=== PATIENT | male | born 1930 | race Caucasian/White ===

== ENCOUNTER 2017-07-29 10:45 | Outpatient (RCR) | payer MEDICARE, OTHER ==
[~2017-07-29 10:45] MED LIST: ANTIBIOTIC PO; CYCLOBENZAPRINE10 MG PO; DAILY VALUE1 EACH PO; FEXOFENADINE H180 M1 PO; LOVENOX60 MG/0.6 PO; VITAMIN C500 MG PO; VITAMIN D3 1,01 EACH PO; Z MIRTAZAPINE PO; Z PROPRANOLOL HCL PO; Z.0.FUROSEMIDE20 MG PO; Z.0.HYDROCHLOROTHIA2 PO; Z.0.MULTIVITAMINS1 E; Z.0.WARFARIN SODIUM5 PO; [UNRECOGNIZED DRUG - OTHER] PO
== END 2017-08-04 ==
LOC: WCC 10:45
PROVIDERS: ATTEND Family Medicine Adult Medicine
DX: I87.331 Chronic venous hypertension (idiopathic) with ulcer and inflammation of right lower extremity (principal); L89.322 Pressure ulcer of left buttock, stage 2; L97.211 Non-pressure chronic ulcer of right calf limited to breakdown of skin; I70.203 Unspecified atherosclerosis of native arteries of extremities, bilateral legs; R60.0 Localized edema; I87.2 Venous insufficiency (chronic) (peripheral); R41.81 Age-related cognitive decline; I10 Essential (primary) hypertension; I63.40 Cerebral infarction due to embolism of unspecified cerebral artery; I25.10 Atherosclerotic heart disease of native coronary artery without angina pectoris; G47.37 Central sleep apnea in conditions classified elsewhere
CPT/HCPCS: 83036; 84134

== ENCOUNTER 2017-08-19 11:00 | Outpatient (RCR) | payer MEDICARE, OTHER ==
[~2017-08-19 11:00] MED LIST changes: -Z.0.MULTIVITAMINS1 E; +Z.0.MULTIVITAMINS1 E PO
[2017-08-23] MEDS ORDERED: ASPIRIN325 MG PO (09:31)
[2017-08-23] MEDS ORDERED: FUROSEMIDE40 MG PO (09:31)
[2017-08-23] MEDS ORDERED: ARICEPT5 MG PO (09:31)
[2017-08-23] MEDS ORDERED: SPIRONOLACTONE1 EACH PO (09:31)
[2017-08-24] MEDS ORDERED: ACETAMINOPHEN325 M1 PO (17:56)
[2017-08-25] MEDS ORDERED: ASPIRIN81 MG PO (13:03)
[2017-08-25] MEDS ORDERED: PLAVIX75 MG PO (13:03)
== END 2017-09-01 ==
LOC: WCC 11:00
PROVIDERS: ATTEND Family Medicine Adult Medicine
DX: I87.331 Chronic venous hypertension (idiopathic) with ulcer and inflammation of right lower extremity (principal); L89.322 Pressure ulcer of left buttock, stage 2; L97.211 Non-pressure chronic ulcer of right calf limited to breakdown of skin; I70.203 Unspecified atherosclerosis of native arteries of extremities, bilateral legs; I87.2 Venous insufficiency (chronic) (peripheral); R60.0 Localized edema; I10 Essential (primary) hypertension; G47.37 Central sleep apnea in conditions classified elsewhere; I25.10 Atherosclerotic heart disease of native coronary artery without angina pectoris; I63.40 Cerebral infarction due to embolism of unspecified cerebral artery; R41.81 Age-related cognitive decline
CPT/HCPCS: G0463 ×2

== ENCOUNTER 2017-08-24 08:31 | Observation (INO) | payer MEDICARE, OTHER ==
[2017-08-23 09:30] LABS: BASOPHILS # (AUTO) 0.1 (0.0-0.1); BASOPHILS % 0.4 % (0.0-1.0); EOSINOPHILS # (AUTO) 0.3 (0.0-0.4); EOSINOPHILS % 2.3 % (0.0-6.0); HEMATOCRIT 45.2 % (38.2-49.6); HEMOGLOBIN 14.9 g/dL (14.0-18.0); LYMPHOCYTES # (AUTO) 1.9 (1.0-3.2); LYMPHOCYTES % 14.2 % (18.0-39.1); MEAN CORPUSCULAR HEMOGLOBIN 32.6 pg (28-32); MEAN CORPUSCULAR VOLUME 98.9 fL (81-99); MONOCYTES # (AUTO) 1.2 (0.2-0.8); MONOCYTES % 8.9 % (4.4-11.3); NEUTROPHILS # (AUTO) 9.7 (2.1-6.9); NEUTROPHILS % 73.8 % (38.7-80.0); PLATELET COUNT 248 x10e3/uL (140-360); RED BLOOD COUNT 4.57 x10e6/uL (4.3-5.7); RED CELL DISTRIBUTION WIDTH 13.7 % (11.7-14.4)
[2017-08-23 10:06] LABS: ALANINE AMINOTRANSFERASE 43 IU/L (0-55); ALBUMIN 4.1 g/dL (3.5-5.0); ALKALINE PHOSPHATASE 85 IU/L (40-150); ANION GAP 14.4 mmol/L (8-16); BLOOD UREA NITROGEN 12 mg/dL (7-26); BUN/CREATININE RATIO 14 (6-25); CALCIUM 9.4 mg/dL (8.4-10.2); CARBON DIOXIDE 28 mmol/L (22-29); CHLORIDE 92 mmol/L (98-107); CHOL/HDL RATIO 4.4 (3.9-4.7); CHOLESTEROL 144 MD/DL (0-199); CREATININE, SERUM 0.83 mg/dL (0.72-1.25); EST GLOMERULAR FILTRATION RATE > 60 ML/MIN (60-); GLUCOSE 97 mg/dL (74-118); HDL CHOLESTEROL 33 MG/DL (40-60); LDL CHOLESTEROL 70 MG/DL (60-130); POTASSIUM 3.4 mmol/L (3.5-5.1); SODIUM 131 mmol/L (136-145); TRIGLYCERIDES 203 MG/DL (0-149)
[~2017-08-24] VITALS: Ht 177.8 cm; Wt 83.9 kg
[2017-08-24] VITALS (7 sets, daily range): BP systolic 122–140; BP diastolic 60–75
[~2017-08-24 08:31] MED LIST changes: +ARICEPT5 MG PO; +ASPIRIN325 MG PO; +FUROSEMIDE40 MG PO; +SPIRONOLACTONE1 EACH PO
--- OUTSIDE RECORDS SUMMARY | 2017-08-24 08:34 | XMS REPORT | Continuity of Care Document ---
Author Author [facility] Organization [facility] Address [address] [place] [address] Phone Unavailable Care Team Providers Care Finished Stock Inspector Name Role Phone DIANA JACK DO PCP Insurance Providers Guarantor Franco Hayes Address [address] [phone] Email NONE Payer Medicare A & B Policy Number [id number] Subscriber's Name Franco Hayes Relationship 18 Self / Same As Patient Effective Date 95 Payer Miscellaneous Ppo Policy Number [id number] Subscriber's Name Franco Hayes Relationship 18 Self / Same As Patient Group Number [id number] Group Name [id number] Effective Date 93 Advance Directives Directive Response Recorded Date/Time Does the patient have an advance directive? Yes 12/04/10 1:42pm If yes, is advance [facility]? No 12/04/10 1:42pm If not on file with [facility] will patient provide a copy? Yes 12/04/10 1:42pm Do you have a Directive to Physician? No 07/08/17 1:54pm Do you have a Medical Power of Finished Stock Inspector? No 07/08/17 1:54pm Do you have an out of hospital Do Not Resuscitate Order? No 07/08/17 1:54pm Do you have any special needs we should be aware of? No 07/08/17 1:54pm Do you have a support person here with you today? No 07/08/17 1:54pm Did patient receive Notice of Privacy Practices? Yes 07/08/17 1:55pm Did patient receive patient rights and responsibilities? Yes 07/08/17 1:55pm Problems No problem information available. Medications Current Home Medications Medication Dose Units Route Directions Days Qty Instructions Start Date Ascorbic Acid (Vitamin C) 500 Mg Capsule.er 500 Mg Oral Daily Ca Cmb No.1/Vit D3/B-6/Fa/B12 (Vitamin D3 1,000 Unit Tablet) 1 Each Tablet Oral Daily Cyclobenzaprine Hcl 10 Mg Tablet 10 Mg Oral Three Times A Day as needed for Pain Fexofenadine Hcl 180 Mg Tablet 180 Mg Oral Daily Hydrochlorothiazide 25 Mg Tablet 25 Mg Oral Daily Mirtazapine 30 Mg Tablet 30 Mg Oral Daily Multivitamin (Multivitamins) 1 Each Tab.chew Daily Propranolol Hcl 40 Mg Tablet 40 Mg Oral Daily Warfarin Sodium 5 Mg Tablet 5 Mg Oral Daily Past Home Medications Medication Directions Ordered Status Antibiotic Nasal , 1 Dose Oral Twice A Day Discontinued Enoxaparin Sodium (Lovenox) 60 Mg/0.6 Ml Inj, 60 Mg Oral Discontinued Furosemide 20 Mg Tablet, 20 Mg Oral Daily Discontinued Metolazone 2.5 Mg Tablet, 2.5 Mg Oral Twice A Day Discontinued Multivitamin (Daily Value) 1 Each Tablet, Oral Daily Discontinued Social History No social history information available. Hospital Discharge Instructions No hospital discharge instruction information available. Plan of Care Prescriptions See Medication Section Functional Status No functional status information available. Allergies, Adverse Reactions, Alerts No known allergies. Immunizations No immunization information available. Vital Signs No vital sign information available. Results Laboratory Results Test Name Result Units Flags Reference Collection Date/Time Result Date/ Time Comments White Blood Count 10.1 x10e3/uL 4.5-10.6 11/16/2016 2:37am 11/16/2016 3 :15am Red Blood Count 4.79 x10e6/uL 4.3-5.7 11/16/2016 2:37am 11/16/2016 3: 15am Hemoglobin 15.6 g/dL 12.3-16.8 11/16/2016 2:37am 11/16/2016 3:15am Hematocrit 45.4 % 38.2-49.6 11/16/2016 2:11/16/2016 3:15am Mean Corpuscular Volume 94.8 fL 81-99 11/16/2016 2:11/16/2016 3: 15am Mean Corpuscular Hemoglobin 32.6 pg H 28-32 11/16/2016 2:372016 3:15am Mean Corpuscular Hemoglobin Concent 34.4 g/dL 31-35 11/16/2016 2:11/16/2016 3:15am Red Cell Distribution Width 14.4 % 11.7-14.4 11/16/2016 2:2016 3:15am Platelet Count 270 x10e3/uL 140-360 11/16/2016 2:11/16/2016 3: 15am Neutrophils (%) (Auto) 71.0 % 38.7-80.0 11/16/2016 2:11/16/2016 3: 15am Lymphocytes (%) (Auto) 15.4 % L 18.0-39.1 11/16/2016 2:11/16/2016 3 :15am Monocytes (%) (Auto) 11.1 % 4.4-11.3 11/16/2016 2:11/16/2016 3: 15am Eosinophils (%) (Auto) 1.6 % 0.0-6.0 11/16/2016 2:11/16/2016 3: 15am Basophils (%) (Auto) 0.5 % 0.0-1.0 11/16/2016 2:11/16/2016 3:15am IM GRANULOCYTES % 0.4 % 0.0-1.0 11/16/2016 2:11/16/2016 3:15am Neutrophils # (Auto) 7.2 H 2.1-6.9 11/16/2016 2:11/16/2016 3: 15am Lymphocytes # (Auto) 1.6 1.0-3.2 11/16/2016 2:11/16/2016 3:15am Monocytes # (Auto) 1.1 H 0.2-0.8 11/16/2016 2:11/16/2016 3:15am Eosinophils # (Auto) 0.2 0.0-0.4 11/16/2016 2:37am 11/16/2016 3:15am Basophils # (Auto) 0.1 0.0-0.1 11/16/2016 2:37am 11/16/2016 3:15am Absolute Immature Granulocyte (auto 0.04 x10e3/uL 0-0.1 11/16/2016 2: 37am 11/16/2016 3:15am Prothrombin Time 14.6 seconds H 11.9-14.5 11/16/2016 2:37am 11/16/2016 3 :16am Prothromb Time International Ratio 1.08 11/16/2016 2:37am 2016 3:16am Oral Anticoagulant Therapy INR Values: 1. Low Intensity Therapy 1.5 - 2.0 2. Moderate Intensity Therapy 2.0 - 3.0 3. High Intensity Therapy(1) 2.5 - 3.5 4. High Intensity Therapy(2) 3.0 - 4.0 5. Panic Value INR > 5.0 Activated Partial Thromboplast Time 28.0 seconds 23.8-35.5 11/16/2016 2: 37am 11/16/2016 3:17am Urine Color YELLOW YELLOW 11/16/2016 3:50am 11/16/2016 4:00am Urine Clarity CLEAR CLEAR 11/16/2016 3:50am 11/16/2016 4:00am Urine Specific [place] 1.015 1.010-1.025 11/16/2016 3:50am 2016 4:00am Urine pH 7 5 - 7 11/16/2016 3:50am 11/16/2016 4:00am Urine Leukocyte Esterase NEGATIVE NEGATIVE 11/16/2016 3:50am 2016 4:00am Urine Nitrite NEGATIVE NEGATIVE 11/16/2016 3:50am 11/16/2016 4:00am Urine Protein NEGATIVE NEGATIVE 11/16/2016 3:50am 11/16/2016 4:00am Urine Glucose (UA) NEGATIVE NEGATIVE 11/16/2016 3:50am 11/16/2016 4: 00am Urine Ketones NEGATIVE NEGATIVE 11/16/2016 3:50am 11/16/2016 4:00am Urine Urobilinogen 0.2 mg/dL 0.2 - 1 11/16/2016 3:50am 11/16/2016 4: 00am Urine Bilirubin NEGATIVE NEGATIVE 11/16/2016 3:50am 11/16/2016 4: 00am Urine Blood NEGATIVE NEGATIVE 11/16/2016 3:50am 11/16/2016 4:00am Urine WBC 0-5 /HPF 0-5 11/16/2016 3:50am 11/16/2016 4:20am Urine RBC 0-5 /HPF 0-5 11/16/2016 3:50am 11/16/2016 4:20am Urine Bacteria RARE /HPF NONE 11/16/2016 3:50am 11/16/2016 4:20am Urine Epithelial Cells RARE /LPF NONE 11/16/2016 3:50am 11/16/2016 4: 20am Sodium Level 138 mmol/L 136-145 11/16/2016 2:37am 11/16/2016 3:31am Potassium Level 2.6 mmol/L *L 3.5-5.1 11/16/2016 2:37am 11/16/2016 3: 31am Results called to YAKELIN CONROY RN at 0330 on 11/16/16 by Veronica Ro. RB OK. Chloride Level 86 mmol/L L 98-107 11/16/2016 2:37am 11/16/2016 3:31am Carbon Dioxide Level 36 mmol/L H 22-29 11/16/2016 2:37am 11/16/2016 3: 31am Anion Gap 18.6 mmol/L H 8-16 11/16/2016 2:37am 11/16/2016 3:31am Blood Urea Nitrogen 20 mg/dL 7-26 11/16/2016 2:37am 11/16/2016 3:31am Creatinine 1.14 mg/dL 0.72-1.25 11/16/2016 2:37am 11/16/2016 3:31am BUN/Creatinine Ratio 18 6-25 11/16/2016 2:37am 11/16/2016 3:31am Estimat Glomerular Filtration Rate > 60 ML/MIN 60- 11/16/2016 2:37am 3:31am Ranges were taken from the National Kidney Disease Education Program and the National Kidney Foundation literature. Reference ranges: 60 or greater: Normal 16-59 (for 3 consecutive months): Chronic kidney disease 15 or less: Kidney failure Glucose Level 116 mg/dL 74-118 11/16/2016 2:37am 11/16/2016 3:31am Calcium Level 10.1 mg/dL 8.4-10.2 11/16/2016 2:37am 11/16/2016 3:31am Magnesium Level 2.2 MG/DL H 1.3-2.1 11/16/2016 3:30am 11/16/2016 3:58am Hemoglobin A1c Percent 5.7 % 4.0-7.0 07/13/2017 11:30am 07/13/2017 1: 08pm Prealbumin 23 mg/dL 9-32 07/13/2017 11:30am 07/15/2017 6:00am Performed at: - [facility] [id number] Cut Off Saw Operator Metal: Philip Kang MD, Phone: [phone] Procedures Procedure Status Date Provider(s) Computed tomography of brain without radiopaque contrast Active 11/16/16 ZAHEER MATOS MD X-ray of chest, two views Active 11/16/16 ZAHEER MATOS MD Encounters Encounter Location Arrival/Admit Date Discharge/Depart Date Attending Provider Discharged [facility] 07/29/17 10:45am 11:59pm ANDRADE MCKEON MD Departed Emergency Room [facility] Patients [facility] 11/16/16 2:08am 10:23am ZAHEER MATOS MD
[2017-08-24] MEDS ORDERED: SODIUM CHLORIDE 0.9% 1000ML 1,000 ML PRN (09:41)
[2017-08-24 10:15] LABS: INR 2.69; PROTHROMBIN TIME 26.9 seconds (11.9-14.5)
--- NOTE | 2017-08-24 13:01 | Operative Report ---
DATE OF PROCEDURE: August 24, 2017 INDICATIONS: Claudication, ulceration of lower extremity with severe peripheral arterial disease. PROCEDURES PERFORMED 1. Abdominal aorta catheter placement and abdominal aortogram. 2. Bilateral lower extremity angiograms. 3. Selective placement of catheter from right femoral artery to left superficial femoral artery. 4. Additional 3rd-order catheter placement from the right femoral artery to the left dorsalis pedis artery. 5. Atherectomy and drug balloon angioplasty of the left anterior tibial artery. 6. Drug-eluting stent placement to the left anterior tibial artery. 7. Secondary thrombectomy of the left anterior tibial artery. 8. Deployment of right groin Perclose. COMPLICATIONS: None. RECOMMENDATIONS 1. Aggressive medical therapy including clopidogrel, aspirin, and warfarin for 1 month followed by warfarin and aspirin lifelong. 2. Staged intervention on the right femoral artery. TECHNIQUE: Access obtained to the right femoral artery. A 6-Kyrgyz sheath was placed. Abdominal aortogram demonstrated no disease in the abdominal aorta and iliac arteries bilaterally. The catheter was advanced from the right femoral artery to the left superficial femoral artery due to nonvisualization of the left femoral artery, confirming 50% stenosis of the distal femoral artery. Infrapopliteal vessels were not well visualized. The catheter was then advanced from the right femoral artery to the left anterior tibial artery (additional 3rd-order catheter placement) and diffuse 30-50% stenosis in the left posterior tibial and peroneal arteries; however, the anterior tibial artery was completely occluded, reconstitution at the level of the dorsalis pedis artery. A decision was made to intervene on the anterior tibial artery in the left leg. The patient received 6000 units of intra-arterial heparin and oral Effient for anticoagulation. The sheath was exchanged to a 6-Kyrgyz, 45 cm sheath and advanced from the right femoral artery to the left superficial femoral artery. The lesion was crossed using a Glidewire and the wire was exchanged to a ViperWire. Orbital atherectomy using a 1.25 mm micro crown was performed. Large amounts of visible thrombus, for which manual aspiration secondary thrombectomy of the left anterior tibial artery was needed. A small balloon angioplasty with a 2.5 and then a 4.0 drug-coated balloon was performed. A small AV fistula was noted requiring drug-eluting stent placement, 3 x 38 mm Global Grind Synergy stent was deployed at 12 atmospheres. The AV fistula was completely sealed, 3-vessel runoff to the left foot. Right leg angiogram demonstrated focal 90% stenosis of the distal right superficial femoral artery. Infrapopliteal vessels were not well visualized. Right groin repaired using Perclose. Patient observed in the hospital overnight and was discharged home the following day. Job#: [id number] SAK
[2017-08-24] MEDS ORDERED: MORPHINE SULFATE 2 MG/ML SYR IV PRN (16:45)
[2017-08-24] MEDS ORDERED: ACETAMINOPHEN325 M1 PO (17:56)
[2017-08-24] MEDS ORDERED: ACETAMINOPHEN 325 MG TAB PO PRN (18:00)
[2017-08-24] MEDS ORDERED: MULTIVITAMINS/MINERALS TAB PO SCH (21:00)
[2017-08-24] MEDS ORDERED: PROPRANOLOL HCL 40 MG TAB PO SCH (21:00)
[2017-08-24] MEDS ORDERED: MIRTAZAPINE 15 MG TAB PO SCH (21:00)
[2017-08-24] MEDS ORDERED: [UNRECOGNIZED DRUG - REMARK] PO SCH (21:00)
[2017-08-24] MEDS ORDERED: WARFARIN SOD 5 MG TAB PO SCH (21:00)
[2017-08-24] MEDS ORDERED: HYDROCHLOROTHIAZIDE 25 MG TAB PO SCH (21:00)
[2017-08-24] MEDS ORDERED: DONEPEZIL HCL 5 MG TAB PO SCH (21:00)
[2017-08-24] MEDS ORDERED: SPIRONOLACTONE 25 MG TAB PO SCH (21:00)
[2017-08-25 00:30] VITALS: BP 128/68
[2017-08-25 06:00] VITALS: BP 134/76
[2017-08-25 06:02] LABS: BASOPHILS % 0.3 % (0.0-1.0); EOSINOPHILS # (AUTO) 0.2 (0.0-0.4); EOSINOPHILS % 1.7 % (0.0-6.0); HEMATOCRIT 41.2 % (38.2-49.6); HEMOGLOBIN 13.6 g/dL (14.0-18.0); LYMPHOCYTES # (AUTO) 1.1 (1.0-3.2); MEAN CORPUSCULAR HEMOGLOBIN 32.3 pg (28-32); MEAN CORPUSCULAR VOLUME 97.9 fL (81-99); MONOCYTES % 9.7 % (4.4-11.3); NEUTROPHILS # (AUTO) 7.6 (2.1-6.9); NEUTROPHILS % 76.8 % (38.7-80.0); PLATELET COUNT 195 x10e3/uL (140-360); RED BLOOD COUNT 4.21 x10e6/uL (4.3-5.7); RED CELL DISTRIBUTION WIDTH 13.7 % (11.7-14.4)
[2017-08-25 06:14] LABS: INR 2.01; PROTHROMBIN TIME 21.4 seconds (11.9-14.5)
[2017-08-25 06:26] LABS: ANION GAP 15.7 mmol/L (8-16); BLOOD UREA NITROGEN 12 mg/dL (7-26); BUN/CREATININE RATIO 15 (6-25); CALCIUM 9.3 mg/dL (8.4-10.2); CARBON DIOXIDE 28 mmol/L (22-29); CHLORIDE 98 mmol/L (98-107); CREATININE, SERUM 0.81 mg/dL (0.72-1.25); EST GLOMERULAR FILTRATION RATE > 60 ML/MIN (60-); GLUCOSE 110 mg/dL (74-118); POTASSIUM 3.7 mmol/L (3.5-5.1); SODIUM 138 mmol/L (136-145)
[2017-08-25] MEDS ORDERED: ASPIRIN 325 MG TAB PO SCH (09:00)
[2017-08-25] MEDS ORDERED: FUROSEMIDE 40 MG TAB PO SCH (09:00)
[2017-08-25] MEDS ORDERED: LORATADINE 10 MG TAB PO PRN (09:00)
[2017-08-25 09:21] VITALS: BP 110/63
[2017-08-25] MEDS ORDERED: CLOPIDOGREL BISULFATE 75 MG TAB PO SCH (13:00)
[2017-08-25] MEDS ORDERED: PLAVIX75 MG PO (13:03)
[2017-08-25] MEDS ORDERED: ASPIRIN81 MG PO (13:03)
== END 2017-08-25 14:06 | disposition home or self-care (01) ==
LOC: CATH LAB 08:31 → IMCU 16:22
PROVIDERS: ADMIT Internal Medicine Interventional Cardiology; ATTEND Internal Medicine Interventional Cardiology
DX: I70.213 Atherosclerosis of native arteries of extremities with intermittent claudication, bilateral legs (principal); L97.819 Non-pressure chronic ulcer of other part of right lower leg with unspecified severity; I70.92 Chronic total occlusion of artery of the extremities; I77.0 Arteriovenous fistula, acquired
CPT/HCPCS: 36415 ×3; 37224; 37231; 37232; 75716; 77002; 80048; 80053; 80061; 85025 ×2; 85610 ×2; C1724; C1725 ×2; C1769; C1874; C1887; C2623; G0378 ×2; J7030; 36140; 92920; 92924

== ENCOUNTER → 2017-09-21 | Day surgery (SDC) | payer MEDICARE, OTHER ==
[2017-09-20 11:58] LABS: BASOPHILS % 0.4 % (0.0-1.0); EOSINOPHILS # (AUTO) 0.1 (0.0-0.4); EOSINOPHILS % 0.9 % (0.0-6.0); HEMATOCRIT 38.7 % (38.2-49.6); HEMOGLOBIN 12.9 g/dL (14.0-18.0); LYMPHOCYTES # (AUTO) 1.3 (1.0-3.2); LYMPHOCYTES % 12.7 % (18.0-39.1); MEAN CORPUSCULAR HEMOGLOBIN 31.8 pg (28-32); MEAN CORPUSCULAR HGB CONC 33.3 g/dL (31-35); MEAN CORPUSCULAR VOLUME 95.3 fL (81-99); MONOCYTES # (AUTO) 1.2 (0.2-0.8); NEUTROPHILS # (AUTO) 7.5 (2.1-6.9); NEUTROPHILS % 73.6 % (38.7-80.0); PLATELET COUNT 288 x10e3/uL (140-360); RED BLOOD COUNT 4.06 x10e6/uL (4.3-5.7); RED CELL DISTRIBUTION WIDTH 13.6 % (11.7-14.4)
[2017-09-20 12:07] LABS: INR 1.49; PROTHROMBIN TIME 16.9 seconds (11.9-14.5)
[2017-09-20 12:16] LABS: ALANINE AMINOTRANSFERASE 34 IU/L (0-55); ALBUMIN 3.9 g/dL (3.5-5.0); ALBUMIN/GLOBULIN RATIO 0.9 (0.8-2.0); ALKALINE PHOSPHATASE 81 IU/L (40-150); BLOOD UREA NITROGEN 24 mg/dL (7-26); BUN/CREATININE RATIO 24 (6-25); CALCIUM 9.6 mg/dL (8.4-10.2); CARBON DIOXIDE 34 mmol/L (22-29); CHLORIDE 90 mmol/L (98-107); CREATININE, SERUM 0.99 mg/dL (0.72-1.25); EST GLOMERULAR FILTRATION RATE > 60 ML/MIN (60-); GLUCOSE 113 mg/dL (74-118); SODIUM 136 mmol/L (136-145)
[~2017-09-21] VITALS: Ht 175.3 cm; Wt 82.6 kg
[~2017-09-21] MED LIST changes: +ACETAMINOPHEN325 M1 PO; +ALLEGRA-D 24 H1 EACH PO; +ASPIRIN81 MG PO; +FENTANYL CITRATE/PF 100MCG/2 ML INJ ONE; +HEPARIN SOD (PORCINE) 1000 UNIT/ML 30ML ONE; +HEPARIN SOD/SOD CHLORIDE 2,000 ML ONE; +IOPAMIDOL 300MG/ML 100 ML INFUS..BTL IV ONE; +LIDOCAINE HCL 2% LOCAL 20 ML VIAL ONE; +MIDAZOLAM HCL 2 MG/2 ML VIAL ONE; +MUCINEX DM ER1 EACH PO; +NITROGLYCERIN/D5W 200 MCG/ML 0 ML ONE; +NITROGLYCERIN/D5W 200 MCG/ML 250 ML ONE; +PLAVIX75 MG PO; +SODIUM CHLORIDE 0.9% 1000ML 1,000 ML ONE; +VERAPAMIL HCL 2.5 MG/ML 2 ML VIAL ONE; +VITAMIN C1000 MG PO; +ZYRTEC10 MG PO
--- OUTSIDE RECORDS SUMMARY | 2017-09-21 11:02 | XMS REPORT | Continuity of Care Document ---
Author Author [facility] Organization [facility] Address [address] [place] [address] Phone Unavailable Care Team Providers Care Sales Agent Name Role Phone JACK ORTIZ DO PCP Insurance Providers Guarantor FreddyFranco Caroline Address [address] [phone] Email NONE Payer Medicare A & B Policy Number [id number] Subscriber's Name Franco Hayes Relationship 18 Self / Same As Patient Group Number [id number] Group Name RETIRED Effective Date 95 Payer Miscellaneous Ppo Policy Number [id number] Subscriber's Name Franco Hayes Relationship 18 Self / Same As Patient Group Number [id number] Group Name RETIRED Effective Date 93 Advance Directives Directive Response Recorded Date/Time Does the patient have an advance directive? No 08/24/17 4:45pm If yes, is advance directive on file with [facility]? No 08/24/17 4:45pm If not on file with [facility] will patient provide a copy? No 08/24/17 4:45pm Do you have a Directive to Physician? No 08/23/17 8:09am Do you have a Medical Power of Viticulture Teacher? Yes 08/23/17 8:09am Do you have an out of hospital Do Not Resuscitate Order? No 08/23/17 8:09am Do you have any special needs we should be aware of? No 08/23/17 8:09am Do you have a support person here with you today? Yes 08/23/17 8:09am Did patient receive Notice of Privacy Practices? Yes 08/23/17 8:09am Did patient receive patient rights and responsibilities? Yes 08/23/17 8:09am Problems No problem information available. Medications Current Home Medications Medication Dose Units Route Directions Days Qty Instructions Start Date Acetaminophen 325 Mg Tablet 325 Mg Oral Every 6 Hours as needed for Pain 5 Days Aspirin 81 Mg Tab.chew 81 Mg Oral Daily 30 Days 30 08/25/17 Ca Cmb No.1/Vit D3/B-6/Fa/B12 (Vitamin D3 1,000 Unit Tablet) 1 Each Tablet 1 Tab Oral Bedtime Clopidogrel Bisulfate (Plavix) 75 Mg Tablet 75 Mg Oral Daily 30 Days 08/25/17 Donepezil Hcl (Aricept) 5 Mg Tablet 10 Mg Oral Bedtime 60 Tab Fexofenadine Hcl 180 Mg Tablet 180 Mg Oral Daily as needed for Allergy Furosemide 40 Mg Tablet 40 Mg Oral Daily 30 Tab Mirtazapine 30 Mg Tablet 30 Mg Oral Bedtime Multivitamin (Multivitamins) 1 Each Tab.chew 1 Tab Oral Bedtime Propranolol Hcl 40 Mg Tablet 40 Mg Oral Bedtime Spironolact/Hydrochlorothiazid (Spironolactone-Hctz 25-25 Tab) 1 Each Tablet 1 Tab Oral Bedtime Warfarin Sodium 5 Mg Tablet 5 Mg Oral Bedtime Past Home Medications Medication Directions Ordered Status Antibiotic Nasal , 1 Dose Oral Twice A Day Discontinued Ascorbic Acid (Vitamin C) 500 Mg Capsule.er, 1000 Mg Oral Daily Discontinued Aspirin 325 Mg Tablet, 150 Mg Oral Daily Discontinued Cyclobenzaprine Hcl 10 Mg Tablet, 10 Mg Oral Three Times A Day as needed for Pain Discontinued Enoxaparin Sodium (Lovenox) 60 Mg/0.6 Ml Inj, 60 Mg Oral Discontinued Furosemide 20 Mg Tablet, 20 Mg Oral Daily Discontinued Hydrochlorothiazide 25 Mg Tablet, 25 Mg Oral Daily Discontinued Metolazone 2.5 Mg Tablet, 2.5 Mg Oral Twice A Day Discontinued Multivitamin (Daily Value) 1 Each Tablet, Oral Daily Discontinued Social History Social History Problem Response Recorded Date/Time Onset Date Status Hx Psychiatric Problems No 08/24/2017 4:45pm Not Applicable Not Applicable Hx Eating Disorder No 08/24/2017 4:45pm Not Applicable Not Applicable Hx Substance Use Disorder No 08/24/2017 4:45pm Not Applicable Not Applicable Hx Depression No 08/24/2017 4:45pm Not Applicable Not Applicable Hx Alcohol Use No 08/24/2017 4:45pm Not Applicable Not Applicable Hx Substance Use Treatment No 08/24/2017 4:45pm Not Applicable Not Applicable Hx Physical Abuse No 08/24/2017 4:45pm Not Applicable Not Applicable Smoking Status Start Date Stop Date Never Smoker Hospital Discharge Instructions No hospital discharge instruction information available. Plan of Care Discharge Date 08/25/17 2:06pm Disposition HOME, SELF-CARE Instructions/Education Provided Peripheral Vascular Disease Prescriptions See Medication Section Referrals RUSTAM FUNG MD (Cardiology) Entered Date: 08/25/2017 1:03pm Address: [address] [place] [address]. [address] [id number] Functional Status Query Response Date Recorded Assistive Devices None August 24, 2017 4:52pm Ambulation Ability Independent August 24, 2017 4:52pm Toileting Ability Independent August 24, 2017 4:52pm Allergies, Adverse Reactions, Alerts No known allergies. Immunizations No immunization information available. Vital Signs Acute Vital Signs Vital Response Date/Time Temperature (Fahrenheit) 98.8 degrees F (97.6 - 99.5) 08/25/2017 9:21am Pulse Pulse Rate (adult) 60 bpm (60 - 90) 08/25/2017 9:21am Respiratory Rate 20 bpm (12 - 24) 08/25/2017 9:21am Blood Pressure 110/63 mm Hg 08/25/2017 9:21am Height 5 ft 10 in 08/23/2017 9:32am Weight 185 lb 08/23/2017 9:32am Body Mass Index 26.5 kg/m^2 08/24/2017 4:45pm Results Laboratory Results Test Name Result Units Flags Reference Collection Date/Time Result Date/ Time Comments Activated Partial Thromboplast Time 28.0 seconds 23.8-35.5 11/16/2016 2: 37am 11/16/2016 3:17am Urine Color YELLOW YELLOW 11/16/2016 3:50am 11/16/2016 4:00am Urine Clarity CLEAR CLEAR 11/16/2016 3:50am 11/16/2016 4:00am Urine Specific [place] 1.015 1.010-1.025 11/16/2016 3:50am 2016 4:00am Urine [...] /LPF NONE 11/16/2016 3:50am 11/16/2016 4: 20am Magnesium Level 2.2 MG/DL H 1.3-2.1 11/16/2016 3:30am 11/16/2016 3:58am Hemoglobin A1c Percent 5.7 % 4.0-7.0 07/13/2017 11:30am 07/13/2017 1: 08pm Prealbumin 23 mg/dL 9-32 07/13/2017 11:30am 07/15/2017 6:00am Performed at: - [facility] [address] [id number] Verification Manager: Philip Kang MD, Phone: [phone] White Blood Count 9.96 x10e3/uL 4.8-10.8 08/25/2017 5:48am 08/25/2017 6 :07am Red Blood Count 4.21 x10e6/uL L 4.3-5.7 08/25/2017 5:48am 08/25/2017 6: 07am Hemoglobin 13.6 g/dL L 14.0-18.0 08/25/2017 5:48am 08/25/2017 6:07am Hematocrit 41.2 % 38.2-49.6 08/25/2017 5:48am 08/25/2017 6:07am Mean Corpuscular Volume 97.9 fL 81-99 08/25/2017 5:48am 08/25/2017 6: 07am Mean Corpuscular Hemoglobin 32.3 pg H 28-32 08/25/2017 5:48am 2017 6:07am Mean Corpuscular Hemoglobin Concent 33.0 g/dL 31-35 08/25/2017 5:48am 08/25/2017 6:07am Red Cell Distribution Width 13.7 % 11.7-14.4 08/25/2017 5:48am 2017 6:07am Platelet Count 195 x10e3/uL 140-360 08/25/2017 5:48am 08/25/2017 6: 07am Neutrophils (%) (Auto) 76.8 % 38.7-80.0 08/25/2017 5:48am 08/25/2017 6: 07am Lymphocytes (%) (Auto) 11.0 % L 18.0-39.1 08/25/2017 5:48am 08/25/2017 6 :07am Monocytes (%) (Auto) 9.7 % 4.4-11.3 08/25/2017 5:48am 08/25/2017 6: 07am Eosinophils (%) (Auto) 1.7 % 0.0-6.0 08/25/2017 5:48am 08/25/2017 6: 07am Basophils (%) (Auto) 0.3 % 0.0-1.0 08/25/2017 5:48am 08/25/2017 6:07am IM GRANULOCYTES % 0.5 % 0.0-1.0 08/25/2017 5:48am 08/25/2017 6:07am Neutrophils # (Auto) 7.6 H 2.1-6.9 08/25/2017 5:48am 08/25/2017 6: 07am Lymphocytes # (Auto) 1.1 1.0-3.2 08/25/2017 5:48am 08/25/2017 6:07am Monocytes # (Auto) 1.0 H 0.2-0.8 08/25/2017 5:48am 08/25/2017 6:07am Eosinophils # (Auto) 0.2 0.0-0.4 08/25/2017 5:48am 08/25/2017 6:07am Basophils # (Auto) 0.0 0.0-0.1 08/25/2017 5:48am 08/25/2017 6:07am Absolute Immature Granulocyte (auto 0.05 x10e3/uL 0-0.1 08/25/2017 5: 48am 08/25/2017 6:07am Prothrombin Time 21.4 seconds H 11.9-14.5 08/25/2017 5:48am 08/25/2017 6 :17am Prothromb Time International Ratio 2.01 08/25/2017 5:48am 2017 6:17am Oral Anticoagulant Therapy INR Values: 1. Low Intensity Therapy 1.5 - 2.0 2. Moderate Intensity Therapy 2.0 - 3.0 3. High Intensity Therapy(1) 2.5 - 3.5 4. High Intensity Therapy(2) 3.0 - 4.0 5. Panic Value INR > 5.0 Sodium Level 138 mmol/L # 136-145 08/25/2017 5:48am 08/25/2017 6:27am Potassium Level 3.7 mmol/L 3.5-5.1 08/25/2017 5:48am 08/25/2017 6:27am Chloride Level 98 mmol/L 98-107 08/25/2017 5:48am 08/25/2017 6:27am Carbon Dioxide Level 28 mmol/L 22-29 08/25/2017 5:48am 08/25/2017 6: 27am Anion Gap 15.7 mmol/L 8-16 08/25/2017 5:48am 08/25/2017 6:27am Blood Urea Nitrogen 12 mg/dL 7-26 08/25/2017 5:48am 08/25/2017 6:27am Creatinine 0.81 mg/dL 0.72-1.25 08/25/2017 5:48am 08/25/2017 6:27am BUN/Creatinine Ratio 15 6-25 08/25/2017 5:48am 08/25/2017 6:27am Estimat Glomerular Filtration Rate > 60 ML/MIN 60- 08/25/2017 5:48am 6:27am Ranges were taken from the National Kidney Disease Education Program and the National Kidney Foundation literature. Reference ranges: 60 or greater: Normal 16-59 (for 3 consecutive months): Chronic kidney disease 15 or less: Kidney failure Glucose Level 110 mg/dL 74-118 08/25/2017 5:48am 08/25/2017 6:27am Calcium Level 9.3 mg/dL 8.4-10.2 08/25/2017 5:48am 08/25/2017 6:27am Total Bilirubin 1.0 mg/dL 0.2-1.2 08/23/2017 9:2408/23/2017 10:12am Aspartate Amino Transf (AST/SGOT) 39 IU/L H 5-34 08/23/2017 9:2408/23 10:12am Alanine Aminotransferase (ALT/SGPT) 43 IU/L 0-55 08/23/2017 9:24 10:12am Total Protein 8.4 g/dL H 6.5-8.1 08/23/2017 9:2408/23/2017 10:12am Albumin 4.1 g/dL 3.5-5.0 08/23/2017 9:2408/23/2017 10:12am Globulin 4.3 g/dL H 2.3-3.5 08/23/2017 9:2408/23/2017 10:12am Albumin/Globulin Ratio 1.0 0.8-2.0 08/23/2017 9:2408/23/2017 10: 12am Alkaline Phosphatase 85 IU/L 40-150 08/23/2017 9:2408/23/2017 10: 12am Triglycerides Level 203 MG/DL H 0-149 08/23/2017 9:24am 08/23/2017 10: 12am Cholesterol Level 144 MD/DL 0-199 08/23/2017 9:24am 08/23/2017 10:12am Less than 200 mg/dL Low Risk 201 - 239 mg/dL Borderline Risk 240 mg/dl and greater High Risk LDL Cholesterol 70 MG/DL 60-130 08/23/2017 9:24am 08/23/2017 10:12am HDL Cholesterol 33 MG/DL L 40-60 08/23/2017 9:24am 08/23/2017 10:12am Cholesterol/HDL Ratio 4.4 3.9-4.7 08/23/2017 9:24am 08/23/2017 10: 12am Procedures Procedure Status Date Provider(s) Computed tomography of brain without radiopaque contrast Active 11/16/16 ZAHEER MATOS MD X-ray of chest, two views Active 11/16/16 ZAHEER MATOS MD Encounters Encounter Location Arrival/Admit Date Discharge/Depart Date Attending Provider [facility]charged [facility] 08/24/17 4:22pm 2:06pm RUSTAM FUNG MD Discharged [facility] 08/19/17 11:00am 11:59pm ANDRADE MCKEON MD Discharged [facility]ring [facility] 07/13/17 3:07pm 08/04/17 11:59pm ANDRADE MCKEON MD Departed Emergency [facility] 11/16/16 2:08am 10:23am ZAHEER MATOS MD
[2017-09-21 11:43] VITALS: BP 123/63
[2017-09-21 11:50] VITALS: BP 123/63
[2017-09-21 15:35] VITALS: BP 128/97
--- NOTE | 2017-09-21 16:04 | Operative Report ---
DATE OF PROCEDURE: September 21, 2017 PROCEDURES PERFORMED 1. Third-order catheter placement from left femoral artery to the right superficial femoral artery with unilateral extremity angiogram. 2. Additional 3rd-order catheter placement from the left femoral artery to the right anterior tibial artery. 3. Atherectomy and angioplasty of the right femoral artery. 4. Deployment of left groin Perclose. COMPLICATIONS: None. RECOMMENDATIONS: Dual antiplatelet therapy. Continued interventions for concomitant venous disease. Access was obtained in the left femoral artery. A 6-Belgian sheath was placed and was advanced to the right femoral artery (3rd-order catheter placement). There was 90% distal femoral artery stenosis. The catheter was then advanced into the anterior tibial artery confirming 2-vessel runoff to the right foot. A decision was made to intervene on the distal right superficial femoral artery. The patient received 10,000 units of intra-arterial heparin for anticoagulation. The lesion was crossed using a Glidewire. The wire was exchanged to a ViperWire. Orbital atherectomy using a 2.0 mm Diamondback CSI crown was performed following which a 7 x 40 mm angioplasty was performed. Excellent end result with less than 10% residual stenosis and 2-vessel runoff to the right foot. No complications. Left groin repaired using Perclose. Patient discharged home the same day. Job#: [id number]
[2017-09-21 16:35] VITALS: BP 126/62
[2017-09-21 17:05] VITALS: BP 123/70
[2017-09-21 18:05] VITALS: BP 139/74
== END | disposition home or self-care (01) ==
LOC: CATH LAB 11:00
PROVIDERS: ATTEND Internal Medicine Interventional Cardiology
DX: I70.201 Unspecified atherosclerosis of native arteries of extremities, right leg (principal); I10 Essential (primary) hypertension; Z01.812 Encounter for preprocedural laboratory examination; Z79.82 Long term (current) use of aspirin; Z79.01 Long term (current) use of anticoagulants; Z79.02 Long term (current) use of antithrombotics/antiplatelets; Z86.73 Personal history of transient ischemic attack (TIA), and cerebral infarction without residual deficits; Z82.49 Family history of ischemic heart disease and other diseases of the circulatory system
CPT/HCPCS: 36247; 36415; 37225; 80053; 85025; 85610; C1724; C1725; C1769; C1887; J1644; J2001; J2250; J7030; Q9967; 36140; 75710; 77002; 92924; G0278